=== PATIENT | female | born 1950 | race Caucasian/White ===

== ENCOUNTER 2023-04-02 11:54 | Day surgery (SDC) | payer MEDICARE, MEDICAID ==
[2023-04-01 11:25] LABS: BASOPHILS % (AUTO) 0.6 % (0-1); LYMPHOCYTES # (AUTO) 1.5 X10'3 (1.1-4.8); LYMPHOCYTES % (AUTO) 31.2 % (21-51); MEAN CORPUSCULAR HEMOGLOBIN 32.6 PG (27.0-31.0); MEAN CORPUSCULAR HGB CONC 33.4 g/dL (33.0-36.5); MEAN CORPUSCULAR VOLUME 97.6 FL (78-98); MEAN PLATELET VOLUME 9.1 FL (7.4-10.4); MONOCYTES # (AUTO) 0.3 X10'3 (0-0.9); NEUTROPHILS # (AUTO) 2.9 X10'3 (1.8-7.7); NEUTROPHILS % (AUTO) 60.2 % (42-75); PRE OP HEMATOCRIT 39.7 % (35.0-45.0); PRE OP HEMOGLOBIN 13.3 g/dL (12.0-16.0); PRE OP PLATELET COUNT 273 X10'3 (140-440); PRE OP WHITE BLOOD COUNT 4.7 10'3 (4.8-10.8); RED BLOOD COUNT 4.06 X10'6 (4.20-5.60); RED CELL DISTRIBUTION WIDTH 13.6 % (11.5-14.5)
[2023-04-01 11:43] LABS: ALBUMIN 3.9 G/DL (3.4-5.0); ALBUMIN/GLOBULIN RATIO 1.1 (1.1-1.5); ALKALINE PHOSPHATASE 76 IU/L (46-116); BLOOD UREA NITROGEN 24 MG/DL (7-18); CALCIUM 10.3 MG/DL (8.5-10.1); CHLORIDE 103 MMOL/L (99-107); PRE OP ALT 23 U/L (30-65); PRE OP ANION GAP 7 (8-16); PRE OP AST 19 U/L (10-37); PRE OP BILIRUB, TOTAL 0.4 MG/DL (0.0-1.0); PRE OP GLUCOSE 95 MG/DL (70-104); PRE OP POTASSIUM 4.2 MMOL/L (3.4-5.1); PRE OP SODIUM 140 MMOL/L (135-145); TOTAL CARBON DIOXIDE 29.8 MMOL/L (24-32); TOTAL PROTEIN 7.5 G/DL (6.4-8.2); eGFR 70 ML/MIN
[~2023-04-02] VITALS: Ht 182.9 cm; Wt 99.2 kg
[~2023-04-02 11:54] MED LIST: ASPI81TA52 PO; CHOL10CA2 PO; FURO20TA4 PO; LEVO50TA8 PO; LOVA20TA2 PO; MULT-1249 PO; famotidine 20mg tablet PO ONE; ringers solution, lacted 1,000 ML IV SCH
[2023-04-02 12:15] VITALS: BP 107/56; PULSE 68; RESP 16; TEMP 96.7; O2SAT 97
[2023-04-02] MEDS ORDERED: rocuronium 10mg/ml inj IV ONE (13:37)
[2023-04-02] MEDS ORDERED: propofol inj 20 ML IV ONE (13:37)
[2023-04-02] MEDS ORDERED: fentaNYL/PF 50MCG/1 ML 2ML syringe ONE (13:37)
[2023-04-02] MEDS ORDERED: midazolam 1 mg/ML 2ml injection ONE (13:37)
[2023-04-02 14:24] VITALS: BP 133/100; PULSE 63; RESP 14; O2SAT 100
[2023-04-02 14:30] VITALS: BP 133/101; PULSE 62; RESP 13; O2SAT 99
[2023-04-02 14:40] VITALS: BP 121/96; PULSE 59; RESP 13; O2SAT 97
[2023-04-02 14:50] VITALS: BP 118/55; PULSE 61; RESP 15; O2SAT 97
[2023-04-02 15:00] VITALS: BP 122/65; PULSE 65; RESP 17; O2SAT 97
== END 2023-04-02 16:24 | disposition home or self-care (01) ==
LOC: PAS 11:54
PROVIDERS: ATTEND Internal Medicine Critical Care Medicine
DX: R91.8 Other nonspecific abnormal finding of lung field (principal); Z53.8 Procedure and treatment not carried out for other reasons; I10 Essential (primary) hypertension; J43.9 Emphysema, unspecified; E03.9 Hypothyroidism, unspecified; M19.90 Unspecified osteoarthritis, unspecified site; F31.9 Bipolar disorder, unspecified; E78.5 Hyperlipidemia, unspecified; Z79.899 Other long term (current) drug therapy; Z87.891 Personal history of nicotine dependence; Z79.82 Long term (current) use of aspirin; Z88.5 Allergy status to narcotic agent; Z98.890 Other specified postprocedural states; Z85.44 Personal history of malignant neoplasm of other female genital organs
CPT/HCPCS: 31623; 31629; 36415; 71250; 80053; 82948; 85025; 93005; J2250; J2704; J3010; J3490; J7120; Z7506; Z7512; A4618

== ENCOUNTER 2023-04-09 11:04 | Inpatient (IN) | payer MEDICARE, MEDICAID ==
[~2023-04-09] VITALS: Ht 182.9 cm; Wt 100.8 kg
[2023-04-09] VITALS (30 sets, daily range): BP systolic 109–169; BP diastolic 48–102; PULSE 60–107; RESP 12–25; TEMP 96.8–100.8; O2SAT 89–97
[~2023-04-09 11:04] MED LIST changes: -ringers solution, lacted 1,000 ML IV SCH
[2023-04-09] MEDS ORDERED: labetalol 20mg/4ml (5mg/ml) syringe IV PRN ×2 (11:20→14:45)
[2023-04-09] MEDS ORDERED: ringers solution, lacted 1,000 ML IV SCH ×2 (11:20→14:45)
[2023-04-09] MEDS ORDERED: enalaprilat dihydrate 2.5mg/2ml vial IV PRN (11:20)
[2023-04-09] MEDS ORDERED: ondansetron/PF 4mg/2ml inj IV PRN ×2 (11:20→14:45)
[2023-04-09] MEDS ORDERED: proCHLORperazine 10 MG/2 ml inj IV PRN (11:20)
[2023-04-09] MEDS ORDERED: meperidine/PF 25mg/ml syringe IV PRN ×3 (11:20)
[2023-04-09] MEDS: ringers solution, lacted 1,000 ML IV SCH ×2 (12:23→20:52)
[2023-04-09] MEDS ORDERED: LIDOcaine 2% (20mg/ml) 5ml vial ONE (13:48)
[2023-04-09] MEDS ORDERED: propofol inj 20 ML IV ONE (13:48)
[2023-04-09] MEDS ORDERED: midazolam 1 mg/ML 2ml injection ONE (14:10)
[2023-04-09] MEDS ORDERED: fentaNYL/PF 50MCG/1 ML 2ML syringe ONE (14:10)
[2023-04-09] MEDS ORDERED: rocuronium 10mg/ml inj IV ONE (14:12)
[2023-04-09] MEDS ORDERED: ondansetron/PF 4mg/2ml inj ONE (14:12)
[2023-04-09] MEDS ORDERED: neostigmine methylsulfate 1 MG/ML 10ml vial ONE ×2 (14:12→14:13)
[2023-04-09] MEDS ORDERED: glycopyrrolate 0.2mg/ml inj ONE ×2 (14:12→14:13)
[2023-04-09] MEDS ORDERED: sevoflurane 250ml liquid IH ONE (14:13)
[2023-04-09] MEDS ORDERED: dexamethasone sod phosphate 10mg/ml inj ONE (14:13)
[2023-04-09] MEDS ORDERED: fentaNYL/PF 50MCG/1 ML 2ML syringe IV PRN ×2 (14:45)
[2023-04-09] MEDS ORDERED: HYDROcodone/acetaminophen 10/325mg tab PO PRN (19:05)
[2023-04-10 02:00] VITALS: BP 126/54; PULSE 78; RESP 20; TEMP 99.3; O2SAT 96
[2023-04-10 06:00] VITALS: BP 124/49; PULSE 82; RESP 16; TEMP 97.7; O2SAT 93
[2023-04-10] MEDS ORDERED: pantoprazole 40mg Tablet.DR PO SCH (07:30)
[2023-04-10 07:40] VITALS: RESP 16; O2SAT 95
[2023-04-10 11:00] VITALS: BP 106/68; PULSE 63; RESP 16; TEMP 97.7; O2SAT 94
== END 2023-04-10 17:30 | disposition home or self-care (01) | DRG 167 ==
LOC: PAS 11:04 → PCU 3S 19:04 → PAS 19:12 → PCU 3S 19:12 → PAS 04-10 17:30 → PCU 3S 04-10 17:30
PROVIDERS: ADMIT Internal Medicine Critical Care Medicine; ATTEND Internal Medicine Critical Care Medicine
PROC: 0B9C8ZX Drainage of Right Upper Lung Lobe, Via Natural or Artificial Opening Endoscopic, Diagnostic (ICD-10-PCS; 2023-04-09)
PROC: 8E0W8CZ Robotic Assisted Procedure of Trunk Region, Via Natural or Artificial Opening Endoscopic (ICD-10-PCS; 2023-04-09)
PROC: 07D78ZX Extraction of Thorax Lymphatic, Via Natural or Artificial Opening Endoscopic, Diagnostic (ICD-10-PCS; 2023-04-09)
PROC: 0BBC8ZX Excision of Right Upper Lung Lobe, Via Natural or Artificial Opening Endoscopic, Diagnostic (ICD-10-PCS; principal; 2023-04-09 14:13)
DX: J95.811 Postprocedural pneumothorax (principal); C34.11 Malignant neoplasm of upper lobe, right bronchus or lung; E78.5 Hyperlipidemia, unspecified; J43.9 Emphysema, unspecified; I10 Essential (primary) hypertension; Z88.5 Allergy status to narcotic agent
CPT/HCPCS: 31622; 31624; 31625; 31626; 31627; 31628; 31653; 31654; 71045; 82948; 87070; 87102; 88172; 88173; 88305; 88341; 88342; 88360; 94760; A4615; A4618; G0378; J1100; J2250; J2405; J2704; J2710; J3010; J3490; J7120

== ENCOUNTER 2023-05-28 05:47 | Inpatient (IN) | payer MEDICARE, MEDICAID ==
[2023-05-25 15:21] LABS: ABG BASE EXCESS 2.1 mmol/L (-2.0-2.0); ABG HCO3 25.8 mmol/L (22.0-26.0); ABG OXYGEN SATURATION 96.4 % (94-97); ABG PCO2 (T) 36.9 mmHg (32.0-45.0); ABG PH (T) 7.462 (7.350-7.450); ABG PO2 (T) 79.3 mmHg (75.0-100.0); ALLEN'S TEST POSITIVE; FCOHb 0.3 % (0.0-3.9); FHHb 3.6 % (0.0-5.0); FMetHb 0.2 % (0.0-1.5); FO2Hb 95.9 % (94-97)
[2023-05-25 15:33] LABS: BASOPHILS % (AUTO) 0.9 % (0-1); BILIRUBIN,URINE NEGATIVE (Neg); CLARITY,URINE CLOUDY (Clear); COLOR,URINE YELLOW (Yellow); GLUCOSE, URINE NEGATIVE (Neg); KETONES,URINE NEGATIVE (Neg); LEUKOCYTE ESTERASE ,URINE NEGATIVE (Neg); LYMPHOCYTES # (AUTO) 1.7 X10'3 (1.1-4.8); MEAN CORPUSCULAR HEMOGLOBIN 32.2 PG (27.0-31.0); MEAN CORPUSCULAR HGB CONC 32.9 g/dL (33.0-36.5); MEAN CORPUSCULAR VOLUME 97.7 FL (78-98); MEAN PLATELET VOLUME 8.7 FL (7.4-10.4); MONOCYTES # (AUTO) 0.3 X10'3 (0-0.9); MONOCYTES % (AUTO) 6.3 % (2-12); NEUTROPHILS # (AUTO) 2.2 X10'3 (1.8-7.7); NEUTROPHILS % (AUTO) 50.8 % (42-75); NITRITES, URINE NEGATIVE (Neg); OCCULT BLOOD,URINE NEGATIVE (Neg); PRE OP HEMATOCRIT 36.8 % (35.0-45.0); PRE OP HEMOGLOBIN 12.1 g/dL (12.0-16.0); PRE OP PLATELET COUNT 226 X10'3 (140-440); PRE OP WHITE BLOOD COUNT 4.2 10'3 (4.8-10.8); PROTEIN,URINE NEGATIVE (Neg); RED BLOOD COUNT 3.77 X10'6 (4.20-5.60); RED CELL DISTRIBUTION WIDTH 13.6 % (11.5-14.5); UROBILINOGEN,URINE 0.2 E.U/dL (0.2-1.0)
[2023-05-25 15:42] LABS: UA COLLECTION TYPE CLN CATCH MIDSTREAM
[2023-05-25 15:43] LABS: SQUAMOUS EPITHELIAL CELL,UR FEW /LPF (FEW)
[2023-05-25 15:44] LABS: AMORPHOUS PHOSPHATES 3+
[2023-05-25 15:45] LABS: BACTERIA,URINE FEW /HPF (Neg); RBC,URINE 0-2 /HPF (0-2); WBC,URINE 0-4 /HPF (0-4)
[2023-05-25 15:47] LABS: PRE OP INR 0.9 INR; PRE OP PROTIME 10.2 SECONDS (9.0-12.0)
[2023-05-25 15:58] LABS: ALBUMIN 3.9 G/DL (3.4-5.0); ALBUMIN/GLOBULIN RATIO 1.3 (1.1-1.5); ALKALINE PHOSPHATASE 71 IU/L (46-116); BLOOD UREA NITROGEN 21 MG/DL (7-18); BUN/CREATININE RATIO 24.7 (10.0-20.0); CALCIUM 9.5 MG/DL (8.5-10.1); CHLORIDE 108 MMOL/L (99-107); CREATININE 0.85 MG/DL (0.40-0.90); PRE OP ALT 20 U/L (30-65); PRE OP ANION GAP 9 (8-16); PRE OP AST 6 U/L (10-37); PRE OP BILIRUB, TOTAL 0.4 MG/DL (0.0-1.0); PRE OP GLUCOSE 94 MG/DL (70-104); PRE OP POTASSIUM 4.3 MMOL/L (3.4-5.1); PRE OP SODIUM 145 MMOL/L (135-145); THYROID STIMULATING HORMONE 0.32 ulU/ml (0.34-4.50); TOTAL CARBON DIOXIDE 28.4 MMOL/L (24-32); TOTAL PROTEIN 6.9 G/DL (6.4-8.2); eGFR 66 ML/MIN
[2023-05-28] VITALS (25 sets, daily range): BP systolic 91–164; BP diastolic 40–117; PULSE 61–81; RESP 12–20; TEMP 97.3; O2SAT 95–100
[~2023-05-28] VITALS: Ht 182.9 cm; Wt 96.3 kg
[2023-05-28] MEDS: cefazolin 2gm/D5W 100mL 100 ML IV ONE (05:30)
[~2023-05-28 05:47] MED LIST changes: -CHOL10CA2 PO; +CHOL125C7 PO; -famotidine 20mg tablet PO ONE
[2023-05-28] MEDS ORDERED: iohexol 300mg/ml 100ml inj. ONE (06:38)
[2023-05-28] MEDS ORDERED: INDOCYANINE GREEN 25 MG/10 ML VIAL IV ONE (06:57)
[2023-05-28] MEDS: famotidine 20mg tablet PO ONE (07:16)
[2023-05-28] MEDS: ringers solution, lacted 1,000 ML IV SCH ×2 (07:17→15:06)
[2023-05-28] MEDS ORDERED: MIDAZolam 1 MG/ML 5ML VIAL ONE (07:59)
[2023-05-28] MEDS ORDERED: rocuronium 10mg/ml inj IV ONE ×2 (08:00→09:47)
[2023-05-28] MEDS ORDERED: ondansetron/PF 4mg/2ml inj ONE (08:00)
[2023-05-28] MEDS ORDERED: LIDOcaine 2% (20mg/ml) 5ml vial ONE (08:00)
[2023-05-28] MEDS ORDERED: dexamethasone sod phosphate 4mg/ml inj. ONE (08:00)
[2023-05-28] MEDS ORDERED: propofol inj 20 ML IV ONE (08:00)
[2023-05-28] MEDS ORDERED: fentaNYL /PF 50mcg/ml 5ml ampule ONE (08:00)
[2023-05-28] MEDS ORDERED: HYDROmorphone/PF 0.2 MG/ML SYRINGE IV PRN (08:10)
[2023-05-28] MEDS ORDERED: hydrALAZINE 20mg/ml inj. IV PRN (08:10)
[2023-05-28] MEDS ORDERED: labetalol 20mg/4ml (5mg/ml) syringe IV PRN (08:10)
[2023-05-28] MEDS ORDERED: fentaNYL/PF 50MCG/1 ML 2ML syringe IV PRN (08:10)
[2023-05-28] MEDS ORDERED: ondansetron/PF 4mg/2ml inj IV PRN (08:10)
[2023-05-28] MEDS ORDERED: glycopyrrolate 0.2mg/ml inj ONE (08:15)
[2023-05-28] MEDS ORDERED: neostigmine methylsulfate 1 MG/ML 10ml vial ONE (08:15)
[2023-05-28] MEDS ORDERED: sevoflurane 250ml liquid IH ONE (08:15)
[2023-05-28] MEDS ORDERED: labetalol 20mg/4ml (5mg/ml) syringe IV ONE (09:22)
[2023-05-28] MEDS ORDERED: acetaminophen 1,000mg/100ml IV 100 ML IV ONE (09:32)
[2023-05-28] MEDS ORDERED: albumin (Human) 5% 250ml 250 ML IV ONE (09:32)
[2023-05-28] MEDS ORDERED: sugammadex 200mg/2ml injection IV ONE (09:46)
[2023-05-28] MEDS ORDERED: phenylephrine 10mg/ml inj. -priapism dosing ONE (10:14)
[2023-05-28] MEDS ORDERED: fentaNYL/PF 50MCG/1 ML 2ML syringe ONE (10:24)
[2023-05-28] MEDS: BUPIVACAINE liposomal/PF 13.3 MG/ML vial IM ONE (10:25)
[2023-05-28] MEDS: BUPIVAcaine 2.5mg/ml inj 50ml vial (contains preservative) ONE (10:26)
[2023-05-28] MEDS ORDERED: metoclopramide 5 mg/ml inj IV PRN (12:40)
[2023-05-28] MEDS ORDERED: albuterol 2.5 MG/3 ML nebule NEB PRN (12:40)
[2023-05-28] MEDS ORDERED: morphine 2 MG/ML inj. syringe IV PRN (12:40)
[2023-05-28] MEDS ORDERED: morphine 4 MG/ML inj SYRINge IV PRN (12:40)
[2023-05-28 12:41] LABS: ABG BASE EXCESS -4.2 mmol/L (-2.0-2.0); ABG HCO3 21.5 mmol/L (22.0-26.0); ABG OXYGEN SATURATION 95.2 % (94-97); ABG PCO2 (T) 40.3 mmHg (32.0-45.0); ABG PH (T) 7.341 (7.350-7.450); ABG PO2 (T) 74.6 mmHg (75.0-100.0); FCOHb 0.5 % (0.0-3.9); FHHb 4.8 % (0.0-5.0); FLOW 2 L/min; FO2Hb 94.7 % (94-97); MODE NASAL CANNULA; PATIENT TEMPERATURE 36.2; TOTAL HEMOGLOBIN 12.2 G/dl (12.0-16.0)
[2023-05-28] MEDS: fentaNYL/PF 50MCG/1 ML 2ML syringe IV PRN (13:31)
[2023-05-28] MEDS: HYDROmorphone/PF 0.2 MG/ML SYRINGE IV PRN (14:20)
[2023-05-28] MEDS: HYDROcodone/acetaminophen 10/325mg tab PO PRN (14:53)
[2023-05-28] MEDS: potassium Cl 20mEq in D5-NS 1,000 ML IV SCH (15:06)
[2023-05-28] MEDS: gabapentin 400mg capsule PO SCH (16:00)
[2023-05-28] MEDS: HYDROmorphone inj. 0.5 MG/0.5 ML DISP.SYRIN IV PRN (16:34)
[2023-05-28] MEDS: ceFAZolin inj. 1,000 MG in dextrose 5%-water 50ml 50 ML IV SCH (16:34)
[2023-05-28] MEDS: gabapentin 300mg capsule PO SCH (20:22)
[2023-05-29] VITALS (20 sets, daily range): BP systolic 87–149; BP diastolic 38–72; PULSE 60–97; RESP 10–19; TEMP 97–97.8; O2SAT 92–100
[2023-05-29] MEDS: ondansetron/PF 4mg/2ml inj IV PRN (06:52)
[2023-05-29 15:25] LABS: BASOPHILS % (AUTO) 0.3 % (0-1); EOSINOPHILS % (AUTO) 0.7 % (0-6); HEMATOCRIT 34.3 % (35.0-45.0); HEMOGLOBIN 11.1 g/dl (12.0-16.0); LYMPHOCYTES % (AUTO) 16.8 % (21-51); MEAN CORPUSCULAR HEMOGLOBIN 32.8 PG (27.0-31.0); MEAN CORPUSCULAR HGB CONC 32.4 g/dL (33.0-36.5); MEAN CORPUSCULAR VOLUME 101.2 FL (78-98); MEAN PLATELET VOLUME 8.5 FL (7.4-10.4); MONOCYTES # (AUTO) 0.5 X10'3 (0-0.9); MONOCYTES % (AUTO) 8.1 % (2-12); NEUTROPHILS # (AUTO) 4.5 X10'3 (1.8-7.7); NEUTROPHILS % (AUTO) 74.1 % (42-75); PLATELET COUNT 169 X10'3 (140-440); RED BLOOD COUNT 3.39 X10'6 (4.20-5.60); RED CELL DISTRIBUTION WIDTH 14.3 % (11.5-14.5); WHITE BLOOD COUNT 6.1 X10'3 (4.5-11.0)
[2023-05-29 15:42] LABS: ALANINE AMINOTRANSFERASE 17 U/L (12-78); ALBUMIN 3.1 G/DL (3.4-5.0); ALBUMIN/GLOBULIN RATIO 1.1 (1.1-1.5); ALKALINE PHOSPHATASE 64 IU/L (46-116); ANION GAP 7 (8-16); ASPARTATE AMINO TRANSFERASE 17 U/L (10-37); BILIRUBIN,TOTAL 0.5 MG/DL (0.1-1.0); BLOOD UREA NITROGEN 14 MG/DL (7-18); BUN/CREATININE RATIO 15.4 (10.0-20.0); CALCIUM 8.6 MG/DL (8.5-10.1); CHLORIDE 109 MMOL/L (99-107); CREATININE 0.91 MG/DL (0.40-0.90); GLUCOSE 135 MG/DL (70-104); POTASSIUM 4.7 MMOL/L (3.5-5.1); SODIUM 143 MMOL/L (135-145); TOTAL CARBON DIOXIDE 26.8 MMOL/L (24-32); eCRCL 64 ML/MIN; eGFR 61 ML/MIN
[2023-05-29] MEDS: atorvastatin 10mg tablet PO SCH (20:24)
[2023-05-30 02:00] VITALS: BP 142/52; PULSE 75; RESP 16; TEMP 96.6; O2SAT 98
[2023-05-30] MEDS: HYDROcodone/acetaminophen 10/325mg tab PO PRN (03:22)
[2023-05-30 06:00] VITALS: BP 132/52; PULSE 85; RESP 14; TEMP 97.3; O2SAT 96
[2023-05-30 07:36] LABS: BASOPHILS % (AUTO) 0.3 % (0-1); EOSINOPHILS # (AUTO) 0.1 X10'3 (0-0.9); HEMATOCRIT 31.5 % (35.0-45.0); HEMOGLOBIN 10.5 g/dl (12.0-16.0); LYMPHOCYTES % (AUTO) 17.3 % (21-51); MEAN CORPUSCULAR HEMOGLOBIN 33.1 PG (27.0-31.0); MEAN CORPUSCULAR HGB CONC 33.2 g/dL (33.0-36.5); MEAN CORPUSCULAR VOLUME 99.5 FL (78-98); MEAN PLATELET VOLUME 8.7 FL (7.4-10.4); MONOCYTES # (AUTO) 0.4 X10'3 (0-0.9); MONOCYTES % (AUTO) 7.1 % (2-12); NEUTROPHILS # (AUTO) 4.1 X10'3 (1.8-7.7); NEUTROPHILS % (AUTO) 74.3 % (42-75); PLATELET COUNT 164 X10'3 (140-440); RED BLOOD COUNT 3.17 X10'6 (4.20-5.60); RED CELL DISTRIBUTION WIDTH 13.7 % (11.5-14.5); WHITE BLOOD COUNT 5.6 X10'3 (4.5-11.0)
[2023-05-30 08:00] VITALS: RESP 16; O2SAT 96
[2023-05-30 08:04] LABS: ALANINE AMINOTRANSFERASE 18 U/L (12-78); ALBUMIN 2.7 G/DL (3.4-5.0); ALBUMIN/GLOBULIN RATIO 0.9 (1.1-1.5); ALKALINE PHOSPHATASE 56 IU/L (46-116); ANION GAP 5 (8-16); ASPARTATE AMINO TRANSFERASE 20 U/L (10-37); BILIRUBIN,TOTAL 0.4 MG/DL (0.1-1.0); BLOOD UREA NITROGEN 17 MG/DL (7-18); BUN/CREATININE RATIO 24.3 (10.0-20.0); CALCIUM 8.6 MG/DL (8.5-10.1); CHLORIDE 109 MMOL/L (99-107); GLUCOSE 136 MG/DL (70-104); POTASSIUM 4.6 MMOL/L (3.5-5.1); SODIUM 142 MMOL/L (135-145); TOTAL CARBON DIOXIDE 28.1 MMOL/L (24-32); TOTAL PROTEIN 5.6 G/DL (6.4-8.2); eCRCL 83 ML/MIN; eGFR 82 ML/MIN
[2023-05-30] MEDS: cholecalciferol (vitamin D3) 1,000 unit (25mcg) tablet PO SCH (08:14)
[2023-05-30] MEDS: aspirin 81mg, enteric-coated 1 TAB TABLET.DR PO SCH (08:14)
[2023-05-30] MEDS: levoTHYROXINE 25mcg tablet PO SCH (08:15)
[2023-05-30] MEDS: magnesium hydroxide 30ml (MOM) UD suspension PO ONE (12:51)
[2023-05-30] MEDS ORDERED: ondansetron/PF 4mg/2ml inj IV PRN (14:15)
[2023-05-30] MEDS: metoclopramide 5 mg/ml inj IV PRN (16:28)
[2023-05-30 18:00] VITALS: BP 137/59; PULSE 81; RESP 15; TEMP 97.1; O2SAT 93
[2023-05-30 20:00] VITALS: RESP 15; O2SAT 93
[2023-05-30 22:00] VITALS: BP 146/61; PULSE 83; RESP 20; TEMP 97.7; O2SAT 99
[2023-05-31] VITALS (8 sets, daily range): BP systolic 123–147; BP diastolic 58–80; PULSE 78–95; RESP 13–22; TEMP 97.1–98.6; O2SAT 95–99
[2023-05-31 06:44] LABS: BASOPHILS % (AUTO) 0.4 % (0-1); EOSINOPHILS # (AUTO) 0.1 X10'3 (0-0.9); EOSINOPHILS % (AUTO) 2.2 % (0-6); HEMATOCRIT 31.7 % (35.0-45.0); HEMOGLOBIN 10.7 g/dl (12.0-16.0); LYMPHOCYTES % (AUTO) 19.4 % (21-51); MEAN CORPUSCULAR HEMOGLOBIN 33.4 PG (27.0-31.0); MEAN CORPUSCULAR HGB CONC 33.7 g/dL (33.0-36.5); MEAN CORPUSCULAR VOLUME 99.2 FL (78-98); MEAN PLATELET VOLUME 8.8 FL (7.4-10.4); MONOCYTES # (AUTO) 0.5 X10'3 (0-0.9); MONOCYTES % (AUTO) 8.9 % (2-12); NEUTROPHILS # (AUTO) 3.7 X10'3 (1.8-7.7); NEUTROPHILS % (AUTO) 69.1 % (42-75); PLATELET COUNT 175 X10'3 (140-440); RED CELL DISTRIBUTION WIDTH 13.6 % (11.5-14.5); WHITE BLOOD COUNT 5.3 X10'3 (4.5-11.0)
[2023-05-31 07:05] LABS: ALANINE AMINOTRANSFERASE 21 U/L (12-78); ALBUMIN 2.7 G/DL (3.4-5.0); ALBUMIN/GLOBULIN RATIO 0.8 (1.1-1.5); ALKALINE PHOSPHATASE 55 IU/L (46-116); ANION GAP 5 (8-16); ASPARTATE AMINO TRANSFERASE 22 U/L (10-37); BILIRUBIN,TOTAL 0.6 MG/DL (0.1-1.0); BLOOD UREA NITROGEN 10 MG/DL (7-18); BUN/CREATININE RATIO 13.2 (10.0-20.0); CALCIUM 8.9 MG/DL (8.5-10.1); CHLORIDE 108 MMOL/L (99-107); CREATININE 0.76 MG/DL (0.40-0.90); GLUCOSE 121 MG/DL (70-104); POTASSIUM 4.3 MMOL/L (3.5-5.1); SODIUM 144 MMOL/L (135-145); TOTAL PROTEIN 6.2 G/DL (6.4-8.2); eCRCL 76 ML/MIN; eGFR 75 ML/MIN
[2023-05-31] MEDS: furosemide 20MG tablet PO SCH (11:24)
[2023-06-01 02:00] VITALS: BP 128/57; PULSE 74; RESP 19; TEMP 97.4; O2SAT 98
[2023-06-01 06:00] VITALS: BP 135/68; PULSE 76; RESP 13; TEMP 97.1; O2SAT 97
[2023-06-01 06:30] LABS: BASOPHILS % (AUTO) 0.4 % (0-1); EOSINOPHILS # (AUTO) 0.1 X10'3 (0-0.9); EOSINOPHILS % (AUTO) 2.2 % (0-6); HEMATOCRIT 30.8 % (35.0-45.0); HEMOGLOBIN 10.5 g/dl (12.0-16.0); LYMPHOCYTES # (AUTO) 0.9 X10'3 (1.1-4.8); LYMPHOCYTES % (AUTO) 22.8 % (21-51); MEAN CORPUSCULAR HEMOGLOBIN 33.5 PG (27.0-31.0); MEAN CORPUSCULAR HGB CONC 34.2 g/dL (33.0-36.5); MEAN PLATELET VOLUME 8.6 FL (7.4-10.4); MONOCYTES # (AUTO) 0.4 X10'3 (0-0.9); MONOCYTES % (AUTO) 9.7 % (2-12); NEUTROPHILS # (AUTO) 2.6 X10'3 (1.8-7.7); NEUTROPHILS % (AUTO) 64.9 % (42-75); PLATELET COUNT 180 X10'3 (140-440); RED BLOOD COUNT 3.14 X10'6 (4.20-5.60); RED CELL DISTRIBUTION WIDTH 13.2 % (11.5-14.5); WHITE BLOOD COUNT 4.1 X10'3 (4.5-11.0)
[2023-06-01 06:56] LABS: ALANINE AMINOTRANSFERASE 18 U/L (12-78); ALBUMIN 2.5 G/DL (3.4-5.0); ALBUMIN/GLOBULIN RATIO 0.8 (1.1-1.5); ALKALINE PHOSPHATASE 59 IU/L (46-116); ANION GAP 4 (8-16); ASPARTATE AMINO TRANSFERASE 18 U/L (10-37); BILIRUBIN,TOTAL 0.6 MG/DL (0.1-1.0); BLOOD UREA NITROGEN 9 MG/DL (7-18); BUN/CREATININE RATIO 13.4 (10.0-20.0); CALCIUM 8.5 MG/DL (8.5-10.1); CHLORIDE 108 MMOL/L (99-107); CREATININE 0.67 MG/DL (0.40-0.90); GLUCOSE 130 MG/DL (70-104); POTASSIUM 4.2 MMOL/L (3.5-5.1); SODIUM 142 MMOL/L (135-145); TOTAL CARBON DIOXIDE 30.2 MMOL/L (24-32); TOTAL PROTEIN 5.7 G/DL (6.4-8.2); eCRCL 86 ML/MIN; eGFR 86 ML/MIN
[2023-06-01 11:00] VITALS: BP 150/72; PULSE 65; RESP 18; TEMP 97.2; O2SAT 97
[2023-06-01 18:00] VITALS: BP 142/57; PULSE 81; RESP 16; TEMP 96.4; O2SAT 95
[2023-06-01 20:00] VITALS: RESP 16; O2SAT 96
[2023-06-01 22:00] VITALS: BP 150/69; PULSE 73; RESP 18; TEMP 98.1; O2SAT 97
[2023-06-02 06:30] VITALS: BP 139/54; PULSE 67; PULSE 70; RESP 18; TEMP 98.6; O2SAT 98
[2023-06-02 06:36] LABS: BASOPHILS % (AUTO) 0.6 % (0-1); EOSINOPHILS # (AUTO) 0.1 X10'3 (0-0.9); EOSINOPHILS % (AUTO) 2.7 % (0-6); HEMATOCRIT 32.4 % (35.0-45.0); LYMPHOCYTES # (AUTO) 1.1 X10'3 (1.1-4.8); LYMPHOCYTES % (AUTO) 28.9 % (21-51); MEAN CORPUSCULAR HGB CONC 33.9 g/dL (33.0-36.5); MEAN CORPUSCULAR VOLUME 97.5 FL (78-98); MEAN PLATELET VOLUME 8.4 FL (7.4-10.4); MONOCYTES # (AUTO) 0.4 X10'3 (0-0.9); MONOCYTES % (AUTO) 9.6 % (2-12); NEUTROPHILS # (AUTO) 2.2 X10'3 (1.8-7.7); NEUTROPHILS % (AUTO) 58.2 % (42-75); PLATELET COUNT 204 X10'3 (140-440); RED BLOOD COUNT 3.33 X10'6 (4.20-5.60); RED CELL DISTRIBUTION WIDTH 13.2 % (11.5-14.5); WHITE BLOOD COUNT 3.8 X10'3 (4.5-11.0)
[2023-06-02 07:03] LABS: ALANINE AMINOTRANSFERASE 20 U/L (12-78); ALBUMIN 2.7 G/DL (3.4-5.0); ALBUMIN/GLOBULIN RATIO 0.8 (1.1-1.5); ALKALINE PHOSPHATASE 66 IU/L (46-116); ANION GAP 4 (8-16); ASPARTATE AMINO TRANSFERASE 17 U/L (10-37); BILIRUBIN,TOTAL 0.6 MG/DL (0.1-1.0); BLOOD UREA NITROGEN 14 MG/DL (7-18); BUN/CREATININE RATIO 17.9 (10.0-20.0); CHLORIDE 107 MMOL/L (99-107); CREATININE 0.78 MG/DL (0.40-0.90); GLUCOSE 123 MG/DL (70-104); POTASSIUM 4.2 MMOL/L (3.5-5.1); SODIUM 141 MMOL/L (135-145); TOTAL CARBON DIOXIDE 30.5 MMOL/L (24-32); TOTAL PROTEIN 5.9 G/DL (6.4-8.2); eCRCL 74 ML/MIN; eGFR 72 ML/MIN
[2023-06-02 08:00] VITALS: RESP 22; O2SAT 95
[2023-06-02 11:00] VITALS: BP 131/68; PULSE 77; RESP 14; TEMP 98; O2SAT 95
[2023-06-02 15:00] VITALS: BP 132/71; PULSE 71; RESP 15; TEMP 97.8; O2SAT 97
[2023-06-02] MEDS ORDERED: HYDR-3972 PO (19:11)
[2023-06-02 20:00] VITALS: RESP 20; O2SAT 97
== END 2023-06-02 21:00 | disposition home or self-care (01) | DRG 165 ==
LOC: PAS IN 05:47 → CICU 2S 14:45 → UNDODISIN 05-29 16:43 → PCU 3S 05-29 16:45
PROVIDERS: ADMIT Surgery; ATTEND Surgery
PROC: 07B74ZZ Excision of Thorax Lymphatic, Percutaneous Endoscopic Approach (ICD-10-PCS; 2023-05-28)
PROC: 8E0W4CZ Robotic Assisted Procedure of Trunk Region, Percutaneous Endoscopic Approach (ICD-10-PCS; 2023-05-28)
PROC: 03HY32Z Insertion of Monitoring Device into Upper Artery, Percutaneous Approach (ICD-10-PCS; 2023-05-28)
PROC: 0BBC4ZZ Excision of Right Upper Lung Lobe, Percutaneous Endoscopic Approach (ICD-10-PCS; principal; 2023-05-28 08:15)
DX: C34.11 Malignant neoplasm of upper lobe, right bronchus or lung (principal); E03.9 Hypothyroidism, unspecified; I10 Essential (primary) hypertension; J43.9 Emphysema, unspecified; E78.5 Hyperlipidemia, unspecified; Z88.5 Allergy status to narcotic agent; Z87.891 Personal history of nicotine dependence
CPT/HCPCS: 36415; 36600; 71045; 71046; 71260; 80053; 81001; 82803; 82948; 84443; 85018; 85025; 85610; 85730; 86885; 86900; 86901; 87081; 88305; 88307; 97116; 97161; 97530; A4615; A4618; A6213; A6223; A6253; A6258; A6449; A7000; A7048; C1758; C9290; G0378; J0131; J0690; J1100; J1170; J2250; J2370; J2405; J2704; J2710; J2765; J3010; J3480; J3490; J7040; J7060; J7120; P9045; Q9967